=== PATIENT | female | born 1970 | race Caucasian/White ===

== ENCOUNTER 2022-03-27 14:41 | Outpatient (CLI) | payer OTHER, SELFPAY ==
[2022-03-27 13:07] LABS: Albumin* 4.5 g/dL (3.3-5.0); Chloride* 105 mmol/L (96-114); Potassium* 4.6 mmol/L (3.6-5.1); Sodium* 139 mmol/L (135-149)
[2022-03-27 13:09] LABS: Carbon Dioxide* 27 mmol/L (20-32); Cholesterol* 244 mg/dL (90-199); Estimated Glomerular Filt Rate 68 ml/min
[2022-03-27 13:10] LABS: Alanine Aminotransferase* 17 U/L (4-35); Alkaline Phosphatase* 83 U/L (40-150); Aspartate Amino Transferase* 26 U/L (12-35); Bilirubin Total* 0.3 mg/dL (0.1-1.5); Blood Urea Nitrogen* 22 mg/dL (7-30); Calcium* 9.9 mg/dL (8.4-10.6); Glucose* 100 mg/dL (60-115); HDL Cholesterol* 68 mg/dL (>=50); LDL Cholesterol Calculated 160 mg/dL (<100); Total Protein* 7.2 g/dL (6.0-8.3); Triglycerides* 79 mg/dL (40-149)
[2022-04-01 10:38] LABS: Lipase* 76 U/L (23-300)
[2022-04-01 10:55] LABS: Vitamin D 25 Hydroxy* 47 ng/mL (30-80)
[2022-04-01 11:28] LABS: Vitamin B12* 512 pg/mL (243-894)
== END 2022-03-27 14:42 | disposition home or self-care (01) ==
PROVIDERS: PCP Physician Assistant Medical; Visit Provider Physician Assistant Medical
DX: Z00.00 Encounter for general adult medical examination without abnormal findings (principal); K52.832 Lymphocytic colitis; R14.0 Abdominal distension (gaseous); L60.8 Other nail disorders
CPT/HCPCS: 80053; 80061; 82306; 82607; 83690; 84443

== ENCOUNTER 2022-04-19 10:00 | Outpatient (CLI) | payer OTHER, SELFPAY ==
--- NOTE | 2022-04-19 10:15 | CRLHL7_ITS ---
For Patients: As a result of the Century Cures Act, medical imaging exams and procedure reports are released immediately into your electronic medical record. You may view this report before your referring provider. If you have questions, please contact your health care provider. INDICATION: ABDOMEN DISTENSION COMPARISON: none TECHNIQUE: Real time noyola scale imaging and color Doppler analysis was performed of the right upper quadrant. FINDINGS: The patient`s liver is of normal size and has uniform echogenicity. There is a normal appearance of the hepatic IVC and proximal abdominal aorta. There is no evidence of ascites. The gallbladder is of normal size and there is no evidence of intraluminal stones or sludge. The gallbladder wall measures 2 mm in thickness. The common bile duct is of normal size and measures 4 mm in diameter at the level of the le hepatis. The pancreas appears normal. There is no evidence of a stone or hydronephrosis within the right kidney. The right kidney measures 9.3 cm in length. IMPRESSION: Normal right upper quadrant ultrasound. Dictated by Feng Braga MD @ 04/19/2022 11:02:32 AM (Electronically Signed)
--- NOTE | 2022-04-19 11:30 | CRLHL7_ITS ---
For Patients: As a result of the Century Cures Act, medical imaging exams and procedure reports are released immediately into your electronic medical record. You may view this report before your referring provider. If you have questions, please contact your health care provider. BILATERAL SCREENING MAMMOGRAM WITH COMPUTER-AIDED DETECTION AND TOMOSYNTHESIS TECHNIQUE: CC and MLO views were obtained. These mammographic images have been obtained using full-field digital technique. These mammographic images were interpreted with the benefit of computer-aided detection. Breast Tomosynthesis was used in this interpretation. COMPARISON FILM: 02/02/21, 11/09/19, 03/27/17. FINDINGS: The breasts are heterogeneously dense, which may obscure small masses IMPRESSION: There is no radiographic evidence for malignancy. ASSESSMENT: BI-RADS Category 1: Negative RECOMMENDATION: Routine screening mammogram in 1 year. A lay language report of this examination will be provided to the patient. Feng Braga M.D. Diagnostic Radiologist [email or web address] SHA/Dictated by: Feng Braga MD @ 04/19/2022 12:01:00 PM (Electronically Signed)
== END 2022-04-19 10:01 | disposition home or self-care (01) ==
LOC: US 10:02
PROVIDERS: PCP Physician Assistant Medical; Visit Provider Physician Assistant Medical
DX: Z12.31 Encounter for screening mammogram for malignant neoplasm of breast (principal); R92.2 Inconclusive mammogram; R14.0 Abdominal distension (gaseous)
CPT/HCPCS: 76705; 77063; 77067

== ENCOUNTER 2022-07-03 14:35 | Outpatient (CLI) | payer OTHER, SELFPAY | END 2022-07-03 14:36 | disposition home or self-care (01) | PROVIDERS: PCP Physician Assistant Medical; Visit Provider Physician Assistant Medical | DX: R14.0 Abdominal distension (gaseous) (principal) | CPT/HCPCS: 83516 ==

== ENCOUNTER 2022-11-01 08:46 | Outpatient (CLI) | payer OTHER, SELFPAY | END 2022-11-01 08:47 | disposition home or self-care (01) | LOC: NFLDREF 11-03 08:37 | PROVIDERS: PCP Physician Assistant Medical; Referring Provider Physician Assistant Medical; Visit Provider Physician Assistant Medical | DX: E78.5 Hyperlipidemia, unspecified (principal) | CPT/HCPCS: 80061 ==

== ENCOUNTER 2023-02-17 15:13 | Outpatient (CLI) | payer OTHER, SELFPAY | END 2023-02-17 15:14 | disposition home or self-care (01) | PROVIDERS: PCP Physician Assistant Medical; Visit Provider Physician Assistant | DX: N95.1 Menopausal and female climacteric states (principal); E78.5 Hyperlipidemia, unspecified | CPT/HCPCS: 80053; 83001; 84443 ==

== ENCOUNTER 2023-05-02 08:09 | Outpatient (CLI) | payer OTHER, SELFPAY | END 2023-05-02 08:10 | disposition home or self-care (01) | LOC: NFLDREF 05-03 12:10 | PROVIDERS: PCP Physician Assistant Medical; Referring Provider Physician Assistant Medical; Visit Provider Physician Assistant Medical | DX: Z00.00 Encounter for general adult medical examination without abnormal findings (principal); E78.5 Hyperlipidemia, unspecified; Z13.29 Encounter for screening for other suspected endocrine disorder | CPT/HCPCS: 80053; 80061; 84443 ==

== ENCOUNTER 2023-06-04 09:11 | Outpatient (CLI) | payer OTHER, SELFPAY | END 2023-06-04 09:12 | disposition home or self-care (01) | LOC: LKVREF 09:12 | PROVIDERS: PCP Physician Assistant Medical; Visit Provider Physician Assistant Medical | DX: R30.0 Dysuria (principal) | CPT/HCPCS: 86376 ==

== ENCOUNTER 2023-06-18 11:54 | Outpatient (CLI) | payer OTHER, SELFPAY | END 2023-06-18 11:55 | disposition home or self-care (01) | LOC: NFLDREF 06-21 20:13 | PROVIDERS: PCP Physician Assistant Medical; Referring Provider Physician Assistant Medical; Visit Provider Nurse Practitioner Family | DX: R30.0 Dysuria (principal); N30.90 Cystitis, unspecified without hematuria | CPT/HCPCS: 87086; 87186 ==

== ENCOUNTER 2023-07-01 17:26 | Outpatient (CLI) | payer OTHER, SELFPAY ==
--- NOTE | 2023-07-01 18:00 | CRLHL7_ITS ---
For Patients: As a result of the Century Cures Act, medical imaging exams and procedure reports are released immediately into your electronic medical record. You may view this report before your referring provider. If you have questions, please contact your health care provider. BILATERAL SCREENING MAMMOGRAM WITH COMPUTER-AIDED DETECTION AND TOMOSYNTHESIS TECHNIQUE: CC and MLO views were obtained. These mammographic images have been obtained using full-field digital technique. These mammographic images were interpreted with the benefit of computer-aided detection. Breast Tomosynthesis was used in this interpretation. COMPARISON FILM: 04/19/22, 02/02/21, 11/09/19. FINDINGS: The breasts are heterogeneously dense, which may obscure small masses IMPRESSION: There is no radiographic evidence for malignancy. ASSESSMENT: BI-RADS Category 1: Negative RECOMMENDATION: Routine screening mammogram in 1 year. A lay language report of this examination will be provided to the patient. Feng Braga M.D. Diagnostic Radiologist [email or web address] SHA/Dictated by: Feng Braga MD @ 07/02/2023 12:09:00 PM (Electronically Signed)
== END 2023-07-01 17:27 | disposition home or self-care (01) ==
LOC: MAMMO 17:27
PROVIDERS: PCP Physician Assistant Medical; Visit Provider Physician Assistant
DX: Z12.31 Encounter for screening mammogram for malignant neoplasm of breast (principal); R92.2 Inconclusive mammogram
CPT/HCPCS: 77063; 77067

== ENCOUNTER 2024-04-30 08:29 | Outpatient (CLI) | payer OTHER, SELFPAY | END 2024-04-30 08:30 | disposition home or self-care (01) | LOC: NFLDREF 05-06 05:44 | PROVIDERS: PCP Physician Assistant Medical; Referring Provider Physician Assistant Medical; Visit Provider Physician Assistant Medical | DX: Z00.00 Encounter for general adult medical examination without abnormal findings (principal); E78.5 Hyperlipidemia, unspecified; Z83.49 Family history of other endocrine, nutritional and metabolic diseases; Z13.1 Encounter for screening for diabetes mellitus; Z13.6 Encounter for screening for cardiovascular disorders | CPT/HCPCS: 80053; 80061; 84443 ==

== ENCOUNTER 2024-05-27 12:40 | Outpatient (CLI) | payer OTHER, SELFPAY ==
--- NOTE | 2024-05-27 13:00 | CRLHL7_ITS ---
For Patients: As a result of the Century Cures Act, medical imaging exams and procedure reports are released immediately into your electronic medical record. You may view this report before your referring provider. If you have questions, please contact your health care provider. DXA BONE MINERAL DENSITY STUDY Reason for exam: Loss of height. Current height (in): 65.5. Weight (lb): 141. Menopause age: 38. Ethnicity: White. 1. Have you had a previous hip or vertebral fracture? No. 2. Have you had any fractures during your adult life which did not result from significant trauma (e.g., auto accident)? No. 3. Did either of your parents have a hip fracture? No. 4. Do you smoke? No. 5. Have you ever taken Glucocorticoids? No. 6. Do you have rheumatoid arthritis? No. 7. Do you have secondary osteoporosis? No. 8. Do you drink 3 or more alcoholic drinks per day? No. 9. Are you being treated for osteoporosis? No. 10. Have you ever taken any of the following medications: Actonel, Evista, Fosamax, Miacalcin, Reclast, Boniva, Forteo, HRT (i.e., estrogen/hormone therapy), Protelos, Prolia, Vitamin D, Calcium, other ??? please specify. ANSWER: Yes, vitamin D and HRT (i.e., estrogen/hormone therapy). 11. Do you have any of the following medical conditions: Anorexia or bulimia, asthma or emphysema, end stage renal disease, hyperparathyroidism, any seizure disorders, cancer, inflammatory bowel diseases, hysterectomy, other ??? please specify. ANSWER: Yes, inflammatory bowel diseases and hysterectomy. 12. What was your maximum height (inches)? 66.5. 13. Do you perform weight bearing exercise regularly? Yes. 14. Do you regularly consume dairy products? No. 15. Do you drink caffeinated beverages? Yes. 16. At what age did your period start? 12. 17. Are you premenopausal? No. 18. How many full-term pregnancies have you had? 2. 19. Have you ever missed your period for more than 6 months in a row (not including or menopause)? No. TECHNIQUE: Bone mineral density study was performed using the Sighter. FINDINGS: The results of the study expressed as bone mineral density (BMD) are as follows: Lumbar spine L1 to L4: BMD: 0.995 g/cm2. T-score: -0.5. Z-score: 0.6 Neck Left: BMD: 0.742 g/cm2. T-score: -1.0. Z-score: 0.1 Right: BMD: 0.788 g/cm2. T-score: -0.6. Z-score: 0.5 Total Left: BMD: 0.859 g/cm2. T-score: -0.7. Z-score: 0.0 Right: BMD: 0.867 g/cm2. T-score: -0.6. Z-score: 0.1 IMPRESSION: Normal bone density. Feng Braga M.D. Diagnostic Radiologist [email or web address] JOSEPH/delmis benites/Dictated by: Feng Braga MD @ 05/31/2024 9:19:00 AM (Electronically Signed)
== END 2024-05-27 12:41 | disposition home or self-care (01) ==
LOC: RAD 12:41
PROVIDERS: PCP Physician Assistant Medical; Visit Provider Physician Assistant Medical
DX: R29.890 Loss of height (principal); Z78.0 Asymptomatic menopausal state
CPT/HCPCS: 77080

== ENCOUNTER 2024-06-14 08:15 | Outpatient (CLI) | payer OTHER, SELFPAY | END 2024-06-14 08:16 | disposition home or self-care (01) | LOC: LKVREF 08:16 | PROVIDERS: PCP Physician Assistant Medical; Visit Provider Physician Assistant | DX: R68.82 Decreased libido (principal); N95.1 Menopausal and female climacteric states; E78.5 Hyperlipidemia, unspecified | CPT/HCPCS: 84270; 84402; 84403 ==

== ENCOUNTER 2024-07-08 08:27 | Outpatient (CLI) | payer OTHER, SELFPAY ==
--- NOTE | 2024-07-08 10:28 | W.ANESCHARGE ---
Anesthesia Charges Start Date/Time Anesthesia Start Date: 07/08/24 Anesthesia Start Time: 09:40 Stop Date/Time Anesthesia Stop Date: 07/08/24 Anesthesia Stop Time: 10:27
== END 2024-07-08 08:28 | disposition home or self-care (01) ==
LOC: OP CLINIC 08:27
PROVIDERS: PCP Physician Assistant Medical; Visit Provider Surgery
DX: Z12.11 Encounter for screening for malignant neoplasm of colon (principal); D12.0 Benign neoplasm of cecum; D12.2 Benign neoplasm of ascending colon; K64.8 Other hemorrhoids; Z86.0100 Personal history of colon polyps, unspecified
CPT/HCPCS: 00811; 45385; 88305; J2704

== ENCOUNTER 2024-08-20 10:05 | Outpatient (CLI) | payer OTHER, SELFPAY | END 2024-08-20 10:06 | disposition home or self-care (01) | LOC: NFLDREF 08-26 01:18 | PROVIDERS: PCP Physician Assistant Medical; Referring Provider Physician Assistant Medical; Visit Provider Physician Assistant | DX: R68.82 Decreased libido (principal) | CPT/HCPCS: 84270; 84402; 84403 ==

== ENCOUNTER 2024-09-24 08:45 | Outpatient (CLI) | payer OTHER, SELFPAY | END 2024-09-24 08:46 | disposition home or self-care (01) | LOC: NFLDREF 10-05 23:09 | PROVIDERS: PCP Physician Assistant Medical; Referring Provider Physician Assistant Medical; Visit Provider Physician Assistant | DX: R68.82 Decreased libido (principal) | CPT/HCPCS: 84403 ==

== ENCOUNTER 2024-09-24 08:50 | Outpatient (CLI) | payer OTHER, SELFPAY ==
--- NOTE | 2024-09-24 09:15 | CRLHL7_ITS ---
For Patients: As a result of the Century Cures Act, medical imaging exams and procedure reports are released immediately into your electronic medical record. You may view this report before your referring provider. If you have questions, please contact your health care provider. BILATERAL SCREENING MAMMOGRAM WITH COMPUTER-AIDED DETECTION AND TOMOSYNTHESIS TECHNIQUE: CC and MLO views were obtained. These mammographic images have been obtained using full-field digital technique. These mammographic images were interpreted with the benefit of computer-aided detection. Breast tomosynthesis was used in this interpretation. COMPARISON FILM: 07/01/23, 04/19/22, 02/02/21. FINDINGS: The breasts are heterogeneously dense, which may obscure small masses. IMPRESSION: There is no radiographic evidence for malignancy. ASSESSMENT: BI-RADS Category 1: Negative RECOMMENDATION: Routine screening mammogram in 1 year. A lay language report of this examination will be provided to the patient. FENG SKAGGS M.D. Diagnostic Radiologist [email or web address] JOSEPH/yasmin Transcribed: 09/24/2024, 2:[address]/Dictated by: Feng Skaggs MD @ 09/24/2024 10:18:00 AM (Electronically Signed)
== END 2024-09-24 08:51 | disposition home or self-care (01) ==
LOC: MAMMO 08:51
PROVIDERS: PCP Physician Assistant Medical; Visit Provider Physician Assistant Medical
DX: Z12.31 Encounter for screening mammogram for malignant neoplasm of breast (principal); R92.333 Mammographic heterogeneous density, bilateral breasts
CPT/HCPCS: 77063; 77067

== ENCOUNTER 2024-11-10 08:51 | Outpatient (CLI) | payer OTHER, SELFPAY | END 2024-11-10 08:52 | disposition home or self-care (01) | LOC: NFLDREF 11-15 11:57 | PROVIDERS: PCP Physician Assistant Medical; Referring Provider Physician Assistant Medical; Visit Provider Physician Assistant | DX: R68.82 Decreased libido (principal) | CPT/HCPCS: 84403 ==

== ENCOUNTER 2024-12-29 12:43 | Outpatient (CLI) | payer OTHER, SELFPAY | END 2024-12-29 12:44 | disposition home or self-care (01) | LOC: NFLDREF 01-05 01:33 | PROVIDERS: PCP Physician Assistant Medical; Referring Provider Physician Assistant Medical; Visit Provider Physician Assistant | DX: R68.82 Decreased libido (principal) | CPT/HCPCS: 84403 ==

== ENCOUNTER 2025-02-15 10:47 | Outpatient (CLI) | payer OTHER, SELFPAY | END 2025-02-15 10:48 | disposition home or self-care (01) | LOC: NFLDREF 02-20 15:29 | PROVIDERS: PCP Physician Assistant Medical; Referring Provider Physician Assistant Medical; Visit Provider Physician Assistant | DX: R68.82 Decreased libido (principal) | CPT/HCPCS: 84403 ==

== ENCOUNTER 2025-04-29 08:40 | Outpatient (CLI) | payer OTHER, SELFPAY | END 2025-04-29 08:41 | disposition home or self-care (01) | LOC: NFLDREF 05-04 10:57 | PROVIDERS: PCP Physician Assistant Medical; Referring Provider Physician Assistant Medical; Visit Provider Physician Assistant Medical | DX: E78.5 Hyperlipidemia, unspecified (principal); Z13.1 Encounter for screening for diabetes mellitus; Z13.29 Encounter for screening for other suspected endocrine disorder; Z83.49 Family history of other endocrine, nutritional and metabolic diseases; Z13.6 Encounter for screening for cardiovascular disorders | CPT/HCPCS: 80053; 80061; 82306; 84443 ==

== ENCOUNTER 2025-05-17 16:26 | Outpatient (CLI) | payer OTHER, SELFPAY ==
--- NOTE | 2025-05-17 16:45 | CRLHL7_ITS ---
For Patients: As a result of the Cures Act, medical imaging exams and procedure reports are released immediately into your electronic medical record. You may view this report before your referring provider. If you have questions, please contact your health care provider. INDICATION: Lung nodule. TECHNIQUE: CT chest without contrast. COMPARISON: None. FINDINGS: Lungs and pleura: No nodules. No focal consolidation or pleural effusions or pneumothorax. Heart and vasculature: Heart size is normal. Thoracic aorta and pulmonary artery are normal in caliber. Lymph nodes/mediastinum: No mediastinal, hilar, or axillary adenopathy. Chest wall: Unremarkable. Upper abdomen: No significant findings. Bones: No acute findings IMPRESSION: No pulmonary nodule. No focal consolidation or pleural effusion or pneumothorax. Please note that all CT scans at this facility use dose modulation, iterative reconstruction, and/or weight-based dosing when appropriate to reduce radiation dose to as low as reasonably achievable. Dictated by Modesto Jimenez MD @ 05/19/2025 8:16:46 AM (Electronically Signed)
== END 2025-05-17 16:27 | disposition home or self-care (01) ==
LOC: CT 16:26
PROVIDERS: PCP Physician Assistant Medical; Visit Provider Physician Assistant Medical
DX: R91.1 Solitary pulmonary nodule (principal)
CPT/HCPCS: 71250

== ENCOUNTER 2025-06-17 09:36 | Outpatient (CLI) | payer OTHER, SELFPAY | END 2025-06-17 09:37 | disposition home or self-care (01) | LOC: NFLDREF 09:37 | PROVIDERS: PCP Physician Assistant Medical; Visit Provider Physician Assistant | DX: R68.82 Decreased libido (principal) | CPT/HCPCS: 84270; 84402; 84403 ==

== ENCOUNTER 2025-06-20 07:03 | Outpatient (CLI) | payer OTHER, SELFPAY ==
--- NOTE | 2025-06-20 07:15 | MR_ITS ---
[facility] [address] [facility] [address] Phone:?[phone] Fax:?[phone] Referring Physician Information: Miguel Velasquez M.D. [address] [facility] [place] [address] Phone:?[phone] Fax:?[phone] Patient:Sally Lopez D.O.B:?1970 Sex:?Female Phone:?[phone] [facility] MRN:?[id number] Exam Date:?06/20/2025 EXAM: MRI OF THE RIGHT MIDFOOT AND FOREFOOT CLINICAL INFORMATION: The patient is a 55-year-old with right foot pain. Evaluate for second metatarsal stress fracture. PRIOR SURGERY: None reported. COMPARISON STUDIES: Comparison is made to prior radiographs dated 05/23/2025. TECHNICAL INFORMATION: Imaging was performed on a high-field, 1.5 Lexy MR scanner. Axial proton-density and axial STIR imaging of the midfoot and forefoot was produced in addition to coronal T1, T2, and STIR imaging. Sagittal proton- density and T2 imaging was also produced. FINDINGS: Osseous structures: Midfoot: Fat-suppressed imaging of the midfoot structures shows no evidence for marrow edema or cortical injury. There is no evidence for fracture. Forefoot: Imaging of the metatarsal region demonstrates a broad-based area of increased marrow signal intensity involving the diaphyseal region of the second metatarsal, seen to best advantage on axial series 8 image 12 and on coronal series 5 image 30. A cortical fracture involving the mid and distal diaphyseal regions of the second metatarsal can be seen at the site of the patient's symptoms on sagittal series 3 image 15. The findings are in keeping with a stress injury of the second metatarsal. Surrounding soft tissue and periosteal edema can be seen. No acute bony abnormalities of the remaining metatarsals are present, however increased signal intensity is noted within the medial sesamoid of the great toe, in keeping with sesamoid fracture or sesamoiditis. No acute bony abnormalities of the visualized phalanges can be seen. Joints: IP: Within normal limits. MTP: Mild degenerative changes of the first MTP joint can be seen with a mild effusion. The second through fifth MTP joints are within normal limits. TMT: Within normal limits. Tarsal: Within normal limits. Midfoot ligamentous structures: Lisfranc ligament complex: The Lisfranc ligament appears intact. The dorsal, interosseous, and plantar components appear normal. Myotendinous structures: Flexors: No evidence for injury to the flexor tendons of the midfoot or forefoot can be seen. There is no evidence for tendinosis or tendon rupture. The intrinsic musculature of the right foot is within normal limits. Extensors: No injuries to the extensor tendons of the midfoot or forefoot can be seen. There is no evidence for tendinosis or tendon rupture. Plantar aponeurosis: Normal without evidence for plantar fasciitis, plantar fibroma formation, or tearing. Soft tissue structures: Mild fluid is seen within the first and second metatarsal web spaces, in keeping with mild intermetatarsal bursitis. No well-defined neuroma formation is identified. No other areas of abnormal fluid collection about the midfoot or forefoot are noted. No other neurovascular abnormalities are seen. CONCLUSION: 1. Second metatarsal stress fracture as described above. 2. Degenerative changes of the first MTP joint with fracture or sesamoiditis involving the medial sesamoid of the great toe. 3. No injuries to the flexor or extensor tendons of the midfoot or forefoot can be seen. 4. Mild intermetatarsal bursitis involving the first and second web spaces. 5. No definite neurovascular abnormalities are seen. [facility] Electronically signed on 06/20/2025 1:16:00 PM by Cesar Calderon M.D.
== END 2025-06-20 07:04 | disposition home or self-care (01) ==
LOC: MRI 07:04
PROVIDERS: PCP Physician Assistant Medical; Visit Provider Orthopaedic Surgery
DX: M79.671 Pain in right foot (principal); M84.377A Stress fracture, right toe(s), initial encounter for fracture; M77.51 Other enthesopathy of right foot and ankle
CPT/HCPCS: 73718

== ENCOUNTER 2025-08-11 17:23 | Outpatient (CLI) | payer OTHER, SELFPAY ==
--- NOTE | 2025-08-11 18:15 | MR_ITS ---
EXAM: MRI of the RIGHT ANKLE without contrast CLINICAL: Right foot pain. COMPARISONS: Right foot MRI 06/20/2025. TECHNICAL: Multiplanar multisequence MRI of the right ankle was obtained. SEDATION: None. CONTRAST: None. FINDINGS: Achilles tendon: No tendinopathy or tear. No retrocalcaneal bursitis. Plantar fascia: Unremarkable. Tarsal tunnel: No masses identified. Sinus Tarsi:?Normal fat within the sinus tarsi without significant scar, synovitis, or mass lesion. Ligaments: Anterior talofibular: No injury. Calcaneofibular: No injury. Posterior talofibular: No injury. Syndesmotic:?The anterior inferior and posterior inferior tibiofibular ligaments are intact. Deltoid: The deep and superficial components of the deltoid ligament are intact. Spring: Intact. Bifurcate and calcaneocuboid: Intact. Flexor tendons: Posterior tibial: Minimal fluid about the tendon. No significant tendinosis or tendon tear. Flexor digitorum longus: Normal. Flexor hallucis longus: Normal. Peroneus brevis and longus: There is partial tearing/splitting of the peroneal brevis tendon as it courses along the posterior distal fibula as seen on axial series 4 images 12-19. Peroneal longus tendon appears unremarkable. There is minimal fluid about the peroneal tendons. No peroneal tendon displacement. Extensor tendons: Tibialis anterior: Normal. Extensor hallucis longus: Normal. Extensor digitorum longus: Normal. Joints/Osseous structures: No evidence of acute fracture or talar dome osteochondral lesion. Moderate-sized joint effusion is seen to involve the posterior subtalar joint. Small degenerative cystic change is seen to involve the proximal fourth metatarsal. There is partially visualized bone marrow edema seen to involve the imaged proximal second metatarsal. IMPRESSION: 1. Partial tearing/splitting of the peroneal brevis tendon as it courses along and distal to the distal fibula. 2. Partially visualized bone marrow edema involving the imaged proximal second metatarsal. Small degenerative cystic change involving the proximal fourth metatarsal. 3. Moderate-sized effusion involving the posterior subtalar joint. 4. No evidence of ligamentous injury, fracture or talar dome osteochondral lesion. Z Electronically signed on 08/12/2025 9:16:00 AM by Fox Swanson D.O.
== END 2025-08-11 17:24 | disposition home or self-care (01) ==
PROVIDERS: PCP Physician Assistant Medical; Visit Provider Orthopaedic Surgery
DX: M79.671 Pain in right foot (principal); S96.911A Strain of unspecified muscle and tendon at ankle and foot level, right foot, initial encounter; M25.471 Effusion, right ankle
CPT/HCPCS: 73721